=== PATIENT | male | born 1995 | race Caucasian/White ===

== ENCOUNTER 2022-04-09 16:52 | Emergency (ER) | payer SELFPAY ==
[~2022-04-09] VITALS: Ht 172.7 cm; Wt 68.0 kg
[2022-04-09 17:03] VITALS: BP 119/70
== END 2022-04-09 17:45 | disposition home or self-care (01) ==
LOC: ER 16:52
DX: Z00.00 Encounter for general adult medical examination without abnormal findings (principal)
CPT/HCPCS: 99283